=== PATIENT | male | born 1985 | race Caucasian/White ===

== ENCOUNTER 2016-12-22 20:36 | Emergency (ER) | payer SELFPAY ==
[~2016-12-22] VITALS: Ht 172.7 cm; Wt 59.0 kg
[2016-12-22 20:45] VITALS: BP 144/100
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
== END 2016-12-22 22:22 | disposition home or self-care (01) ==
LOC: ER 20:36
DX: S01.112A Laceration without foreign body of left eyelid and periocular area, initial encounter (principal); S09.90XA Unspecified injury of head, initial encounter; Y08.89XA Assault by other specified means, initial encounter; Y93.89 Activity, other specified; Y92.89 Other specified places as the place of occurrence of the external cause; Y99.8 Other external cause status
CPT/HCPCS: 99282; 99283

== ENCOUNTER 2018-08-23 18:24 | Emergency (ER) | payer OTHER ==
[~2018-08-23] VITALS: Ht 165.1 cm; Wt 63.5 kg
[2018-08-23 18:47] VITALS: BP 128/89
[2018-08-23] MEDS ORDERED: AZIT250T6 PO (18:47)
[2018-08-23] MEDS ORDERED: IBUP-1060 PO (18:48)
[2018-08-23] MEDS ORDERED: HYDR-971 PO (18:48)
--- NOTE | 2018-08-23 18:53 | PHYS DOC ---
Past Medical History Past Medical History: No Pertinent History Past Surgical History: No Surgical History Alcohol Use: Heavy Drug Use: None Adult General Chief Complaint Chief Complaint: SORE THROAT [facility] [employer] HPI Patient is a 33 year old male who presents with sore throat. She has been ill for over 1 week. He complains of persistent sore throat with painful swallowing. He has had chills but no documented fever. He complains of upper respiration symptoms as well. No cough. He does have a runny nose. No rash or neck stiffness. No nausea or vomiting but he does endorse some "upset stomach." He is otherwise a healthy male with no chronic health conditions. Review of Systems Review of Systems Constitutional: Denies fever Eyes: Denies change in visual acuity HENT: as documented above Respiratory: Denies cough or shortness of breath Cardiovascular: No additional information not addressed in HPI GI: Denies abdominal pain, nausea Integument: Denies rash Neurologic: Denies headache All other systems were reviewed and found to be within normal limits, except as documented in this note. Allergies Allergies Allergies Coded Allergies Type Severity Reaction Last Updated Verified No Known Drug Allergies 12/22/16 No Physical Exam Physical Exam Constitutional: Well developed, well nourished, no acute distress, non-toxic appearance HENT: Normocephalic, atraumatic, bilateral external ears normal, oropharynx moist, no oral exudates, posterior oral pharynx is injected but no swelling and no exudates are present. Eyes: PERRLA, EOMI, conjunctiva normal Neck: Normal range of motion, no tenderness, supple Cardiovascular:Heart rate regular rhythm, no murmur Lungs & Thorax: Bilateral breath sounds clear to auscultation Skin: Warm, dry, no erythema, no rash Back: No tenderness, no CVA tenderness Neurologic: Alert and oriented X 3 Psychologic: Affect normal EKG EKG [] Radiology/Procedures Radiology/Procedures [] Course & Med Decision Making Course & Med Decision Making Pertinent Labs and Imaging studies reviewed. (See chart for details) Patient is evaluated in the fast track area. He has sore throat and some physical exam findings concerning for strep. He does have some anterior chain lymphadenopathy. The posterior oral pharynx is injected. Plan today is to treat his pain and put him on a short course of antibiotics. He is also advised that he can use [id number] cold remedy medications as needed. Patient is agreeable to the plan of care. Prescriptions are provided. Dragon Disclaimer Dragon Disclaimer This electronic medical record was generated, in whole or in part, using a voice recognition dictation system. Departure Departure Impression: Primary Impression: Pharyngitis Disposition: 01 HOME, SELF-CARE Condition: GOOD Patient Instructions: Strep Throat, Viral Syndrome Scripts Hydrocodone/Apap 5-325 (NORCO 5-325 TABLET) 1 Each Tablet 1-2 EACH PO PRN Q6HRS PRN for severe pain, #15 as needed for pain Prov: ROXANNE RAMON DO 08/23/18 Ibuprofen (IBUPROFEN) 800 Mg Tablet 800 MG PO PRN TID PRN for MILD PAIN, #21 TAB take with food or milk to avoid upsetting stomach Prov: ROXANNE RAMON DO 08/23/18 Azithromycin (AZITHROMYCIN TABLET) 250 Mg Tablet 250 MG PO UD for ANTI-BIOTIC for 5 Days, #6 TAB 0 Refills Take two tablets on day one. then take one tablet by mouth until gone. Prov: ROXANNE RAMON DO 08/23/18 ROXANNE RAMON DO Aug 23, 2018 18:53
== END 2018-08-23 19:02 | disposition home or self-care (01) ==
LOC: ER 18:24
DX: J02.9 Acute pharyngitis, unspecified (principal); F10.20 Alcohol dependence, uncomplicated; K30 Functional dyspepsia; Y90.9 Presence of alcohol in blood, level not specified
CPT/HCPCS: 99283